=== PATIENT | female | born 1970 | race Two or more races ===

== ENCOUNTER 2016-11-07 15:17 | Emergency (ER) | payer MEDICAID, OTHER ==
[2016-11-07 15:31] VITALS: TEMP 98.5; BMI 26.4
[2016-11-07] MEDS ORDERED: Sodium Chloride 0.9% 1,000 ML IV STA (16:01)
[2016-11-07 17:43] LABS: ADD MANUAL DIFF? NO
[2016-11-07 17:48] LABS: BASO # 0.02 K/mm3 (0.0-2.0); BASO % 0.4 % (0.0-3.0); EOS % 0.7 % (1.5-5.0); GRAN # 2.61 (1.4-6.5); GRAN % 48.9 % (50.0-68.0); HEMATOCRIT 38.2 % (36.0-48.0); LYMPH # 2.3 (1.2-3.4); LYMPH % 42.9 % (22.0-35.0); MEAN CELL VOLUME 86.4 fL (80.0-105.0); MEAN CORPUSCULAR HEMOGLOBIN 28.7 pg (25.0-35.0); MEAN CORPUSCULAR HGB CONC 33.2 g/dl (31.0-37.0); MEAN PLATELET VOLUME 11.1 fl (7.0-11.0); MONO # 0.4 (0.1-0.6); MONO % 7.1 % (1.0-6.0); PLATELET COUNT 276 10^3/uL (120.0-450.0); RED CELL DISTRIBUTION WIDTH 12.8 % (11.5-14.5); WHITE BLOOD COUNT 5.3 10^3/ul (4.5-11.0)
[2016-11-07 17:58] LABS: ALB/GLOB RATIO 1.1 (1.1-1.8); ALKALINE PHOSPHATASE 67 U/L (38-133); ALT/SGPT 27 U/L (7-56); AST/SGOT 23 U/L (15-39); BILIRUBIN,TOTAL 0.6 mg/dL (0.2-1.3); BLOOD UREA NITROGEN 9 mg/dL (7-21); CALCIUM 9.5 mg/dL (8.4-10.5); CARBON DIOXIDE 29 mmol/L (21-33); CHLORIDE 103 mmol/L (98-107); GFR AFRICAN-AMERICAN > 60; GLUCOSE,RANDOM 86 mg/dL (70-110); SODIUM 139 mmol/L (132-148); TOTAL PROTEIN 7.8 g/dL (5.8-8.3)
--- NOTE | 2016-11-07 18:15 | ED PDOC ---
Arrival/HPI - General Chief Complaint: Headache Time Seen by Provider: 11/07/16 15:17 Historian: Patient - History of Present Illness Narrative History of Present Illness (Text): 11/07/16 18:11 46yo female with history of migraine headache present with complaint of left sided temporal headache, nausea, vomiting, photophobia, and dizziness x 2days. She notes history of migraine with similar symptoms in the past. States she took meclizine and her migraine headache this morning, but woke up this evening still lightheaded so she came to ED. she denies fever, chills, neck pain, focal neurological weakness, trauma, any other compliant. Past Medical History - Provider Review Nursing Documentation Reviewed: Yes - Cardiac Hx Cardiac Disorders: No - Pulmonary Hx Respiratory Disorders: No - Neurological Hx Neurological Disorder: Yes Hx Migraine: Yes - Psychiatric Hx Substance Use: No Family/Social History - Physician Review Nursing Documentation Reviewed: Yes Family/Social History: Unknown Family HX Smoking Status: Never Smoked Hx Alcohol Use: No Hx Substance Use: No Allergies/Home Meds Allergies/Adverse Reactions: Allergies acetaminophen [From Percocet] Allergy (Verified 11/07/16 15:31) VOMITING oxycodone [From Percocet] Allergy (Verified 11/07/16 15:31) VOMITING Home Medications: Home Meds Medication Instructions Recorded Confirmed Meclizine [Antivert] 25 mg PO BID 11/07/16 11/07/16 Ondansetron HCl [Zofran] 4 mg PO PRN PRN 11/07/16 11/07/16 Review of Systems - Physician Review All systems were reviewed & negative as marked: Yes - Review of Systems Constitutional: Normal Eyes: Photophobia ENT: Normal Respiratory: Normal Cardiovascular: Normal Gastrointestinal: Normal Genitourinary Female: Normal Musculoskeletal: Normal Skin: Normal Neurological: Headache, Dizziness. absent: Focal Weakness Endocrine: Normal Hemo/Lymphatic: Normal Psychiatric: Normal Physical Exam Vital Signs Reviewed: Yes Vital Signs Temp Pulse Resp BP Pulse Ox 11/07/16 18:20 79 18 109/75 98 11/07/16 15:24 98.5 F 89 18 107/73 98 Temperature: Afebrile Blood Pressure: Normal Pulse: Regular Respiratory Rate: Normal Appearance: Positive for: Well-Appearing, Non-Toxic, Comfortable Pain Distress: None Mental Status: Positive for: Alert and Oriented X 3 - Systems Exam Head: Present: Atraumatic, Normocephalic Pupils: Present: PERRL Extroacular Muscles: Present: EOMI Conjunctiva: Present: Normal Mouth: Present: Moist Mucous Membranes Neck: Present: Normal Range of Motion Respiratory/Chest: Present: Clear to Auscultation, Good Air Exchange. No: Respiratory Distress, Accessory Muscle Use Cardiovascular: Present: Regular Rate and Rhythm, Normal S1, S2. No: Murmurs Abdomen: Present: Normal Bowel Sounds. No: Tenderness, Distention, Peritoneal Signs Back: Present: Normal Inspection Upper Extremity: Present: Normal Inspection. No: Cyanosis, Edema Lower Extremity: Present: Normal Inspection. No: Edema Neurological: Present: GCS=15, CN II-XII Intact, Speech Normal, Motor Func Grossly Intact, Normal Sensory Function, Normal Cerebellar Funct, Norm Deep Tendon Reflexes, Gait Normal, Memory Normal, Normal 2Pt Descrimination, Other ( No focal neurological deficit) Skin: Present: Warm, Dry, Normal Color. No: Rashes Psychiatric: Present: Alert, Oriented x 3, Normal Insight, Normal Concentration Medical Decision Making ED Course and Treatment: 11/07/16 18:16 Pt presented for stated history. On re evaluation she noted that her symptoms improved. she was neurological intact in ED. Lab was unremarkable. Result was DW the pt. she already have medications at home and follows a Neurologist. she was advised to f/u with the Neurologist. TRT ED for any new or worsening symptoms. - Lab Interpretations Lab Results: 11/07/16 17:30 11/07/16 17:30 Lab Results 11/07/16 18:50: Urine Color Yellow, Urine Appearance Clear, Urine pH 6.0, Ur Specific [place] 1.025, Urine Protein Negative, Urine Glucose (UA) Negative, Urine Ketones Negative, Urine Blood Negative, Urine Nitrate Negative, Urine Bilirubin Negative, Urine Urobilinogen 1.0 H, Ur Leukocyte Esterase Negative 11/07/16 17:30: Sodium 139, Potassium 4.0, Chloride 103, Carbon Dioxide 29, Anion Gap 11, BUN 9, Creatinine 0.8, Est GFR ( Amer) > 60, Est GFR (Non- Af Amer) > 60, Random Glucose 86, Calcium 9.5, Total Bilirubin 0.6, AST 23, ALT 27, Alkaline Phosphatase 67, Total Protein 7.8, Albumin 4.1, Globulin 3.7, Albumin/Globulin Ratio 1.1 11/07/16 17:30: WBC 5.3, RBC 4.42, Hgb 12.7, Hct 38.2, MCV 86.4, MCH 28.7, MCHC 33.2, RDW 12.8, Plt Count 276, MPV 11.1 H, Gran % 48.9 L, Lymph % (Auto) 42.9 H , [place] % (Auto) 7.1 H, Eos % (Auto) 0.7 L, Baso % (Auto) 0.4, Gran # 2.61, Lymph # 2.3, [place] # 0.4, Eos # 0.0, Baso # 0.02 - Medication Orders Current Medication Orders: Discontinued Medications Sodium Chloride (Sodium Chloride 0.9%) 1,000 mls @ 999 mls/hr IV .Q1H1M STA Stop: 11/07/16 17:01 Last Admin: 11/07/16 17:34 Dose: 999 mls/hr Ketorolac Tromethamine (Toradol) 30 mg IVP STAT STA Stop: 11/07/16 16:03 Last Admin: 11/07/16 17:35 Dose: 30 mg Meclizine HCl (Antivert) 25 mg PO STAT STA Stop: 11/07/16 16:03 Last Admin: 11/07/16 17:35 Dose: 25 mg Metoclopramide HCl (Reglan) 10 mg IVP STAT STA Stop: 11/07/16 16:03 Last Admin: 11/07/16 17:35 Dose: 10 mg Disposition/Present on Arrival - Present on Arrival Any Indicators Present on Arrival: No History of DVT/PE: No History of Uncontrolled Diabetes: No Urinary Catheter: No History of Decub. Ulcer: No History Surgical Site Infection Following: None - Disposition Have Diagnosis and Disposition been Completed?: Yes Diagnosis: Headache, Dizziness Disposition: HOME/ ROUTINE Disposition Time: 19:15 Patient Plan: Discharge Patient Problems: Current Active Problems Problem Status Onset Dizziness Acute Headache Acute Condition: STABLE Discharge Instructions (ExitCare): Acute Headache (ED) Additional Instructions: Follow up with your Neurologist Return to ED for any new or worsening symptoms Referrals: Ozzy Rivero, [Primary Care Provider] - Follow up with primary
[2016-11-07 18:20] VITALS: BP 109/75
[2016-11-07 19:02] LABS: URINE BILIRUBIN NEGATIVE (NEGATIVE); URINE BLOOD NEGATIVE (NEGATIVE); URINE GLUCOSE (UA) NEGATIVE (NEGATIVE); URINE KETONE NEGATIVE (NEGATIVE); URINE LEUKOCYTE ESTERASE NEGATIVE Leu/uL (NEGATIVE); URINE PROTEIN NEGATIVE mg/dL (<30 mg/dL)
[2016-11-07 19:15] LABS: URINE APPEARANCE CLEAR (CLEAR); URINE COLOR YELLOW (YELLOW)
[2016-11-07 19:30] VITALS: PULSE 80; RESP 16; O2SAT 99
== END 2016-11-07 19:30 | disposition home or self-care (01) ==
LOC: ED 15:17
DX: R51 Headache (principal); R42 Dizziness and giddiness
CPT/HCPCS: 80053; 81003; 85025; 96374; 96375; 99285; J1885; J2765; J7040